=== PATIENT | female | born 1980 | race Caucasian/White ===

== ENCOUNTER 2018-12-28 07:16 | Day surgery (SDC) | payer OTHER, SELFPAY ==
--- NOTE | 2018-12-28 07:00 | W.PM.ENDDOP ---
Date of service: 12/28/18 Time of Service: 08:58 Endoscopy Report DATE OF PROCEDURE: 12/28/18 PRE-OP DIAGNOSIS: Intermittent rectal bleeding, upper abdominal pain POST-OP DIAGNOSIS: other (gastritis, reflux esophagitis, and Hiatal hernia, Grade 1 internal hemorrhoids) PROCEDURE: 1. EGD with biopsies 2. 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 Risks, benefits and complications have been reviewed. Complications include but are not limited to bleeding, pain, perforation, missed small lesion/polyp, sore throat, aspiration and adverse reaction to the medications. Questions were entertained and answered to their satisfaction and they wished to proceed. No guarantees were given or implied. PREP: Miralax/Dulcolax PROCEDURE START TIME: :58 PROCEDURE END TIME: :35 COLONOSCOPY RETRACTION TIME: 16 minutes FINDINGS: Mild to moderate gastritis, moderate esophagitis Small Hiatal hernia Grade 1 internal hemorhoids PROCEDURE DESCRIPTION: After informed consent was obtained the patient was take to the procedure room and placed in a supine position. Monitors were applied and a time out was done. The patients name, date of , procedure type, allergies to medications and metal in their body was reviewed. A bite block was placed and the patient was sedated. Once sedated and comfortable the gastroscope was advanced through the oropharynx which was grossly normal into the esophagus. The proximal and mid-esophagus were normal. In the distal esophagus there was mild to moderate inflammation noted. The scope was advanced into the stomach and through the pylorus into the 3rd portion of the duodenum. The duodenum was noted to be normal. Biopsies were done to rule out Celiac. The scope was retracted back into the stomach and biopsies were done to rule out H. pylori. There were no ulcers. The scope was retro-flexed. The cardia and fundus were noted to be normal. There was a small hiatal hernia noted. The scope was retracted back into the esophagus and biopsies were done of the GE junction to rule out Amanda's. The Z line was irregular. The GE junction was at 32 cm. While the patient was still sedated they were placed in a left decubitous position. A rectal exam was done. External exam was normal. Internal exam revealed a normal sphincter tone and no palpable masses. The scope was then introduced and retro-flexed. Grade 1 internal hemorrhoidswere noted. There were no polyps or masses identified. The scope was then advanced to the cecum without difficulty. The TI and appendiceal orifice were identified. The prep was adequate. There was bile adhered to the mucosa in the right colon. This was washed off with 1 L of sterile water. The scope was then slowly retracted over 16 minutes back into the rectum. The scope was removed and the patient was woken up and taken back to Same day surgery in stable condition. The patient tolerated the procedure well and there were no immediate complications. Follow up: 2 weeks in the office. Start Ranitidine 150 mg BID.
--- NOTE | 2018-12-28 07:03 | PDOC.DSDIS_ITS ---
Discharge Plan Disposition Patient Disposition: HOME Condition: Good Discharge Details Reason For Visit: Rectal bleeding and upper abdominal pain Attending Provider: Nohelia Jimenez Primary Care Provider: No,Local Home Meds and New Rx's Prescriptions: New ranitidine HCl 150 mg tablet 150 mg PO BID Qty: 60 RF: 0 Continued calcium carbonate [Tums] 300 mg (750 mg) Tablet,Chewable 1 - 2 PO PRN PRNRF: 0 ibuprofen 200 mg Tablet 400 mg PO PRN PRNRF: 0 Discharge Instructions Instructions: Gastritis (DC), Colonoscopy (GEN), Gastroesophageal Reflux Disease (GEN), Upper Endoscopy (DC) Additional Instructions: Findings: mild to moderate inflammation of the stomach and esophagus Grade 1 internal hemorrhoids Follow up: I will call you with bx results and see how the [facility] is working Please call if you develop: fevers >101.5 Nausea or Vomiting Abdominal pain that is not transient DAY SURGERY UNIT POST ENDOSCOPY INSTRUCTIONS 1. Because there will be medication in your system for the next 24 hours, you may feel a little sleepy. Your coordination will be affected. Therefore: a. Do not drive or operate dangerous equipment for 24 hours. b. Do not drink alcohol beverages for 24 hours (not even beer). c. Plan to go home and rest for the day. 2. Generally there are no restrictions on your activity after a day or so has gone by, but you may feel a bit fatigued for a few days. 3 After you arrive home you may have a light meal and return to a normal diet as you can tolerate it without feeling sick to your stomach. 4. After surgery, you may feel pain or discomfort. This should be only transient, but if it persists please contact your doctor. 5. If there are any questions regarding the findings of your procedure, please feel free to contact your doctor. 6. If you are unable to contact your doctor with a problem, contact the hospital at [phone]. 7. Continue all your regular medications unless directed otherwise. I understand the above instructions and have no questions. Signature of Patient or Responsible Adult Escort Date/Time Name of Responsible Adult Escort Signature of Nurse Date/Time Activity:: Activity as Tolerated Diet:: As Tolerated Discharge Orders Discharge Orders: Discharge Order (Routine); Ordered 12/28/18 Ordered By: Nohelia Jimenez DS: Diagnosis Discharge Diagnosis (1) Rectal hemorrhage: Status: Acute (2) S/P colonoscopy: Status: Acute (3) H/O esophagogastroduodenoscopy: Status: Chronic (4) Gastritis: Status: Acute (5) Esophagitis: Status: Acute (6) Internal hemorrhoids without complication: Status: Acute
[2018-12-28 07:35] VITALS: BP 114/74; PULSE 75; RESP 16; TEMP 36.1; O2SAT 99
[2018-12-28] MEDS: Lactated Ringers 1,000 ML 80 ML IV (07:57)
--- NOTE | 2018-12-28 08:36 | W.PM.HP.N ---
Date of service: 12/28/18 Time of Service: 08:36 Assessment and Plan Assessment and plan (1) Rectal hemorrhage: Status: Acute Assessment and plan: P\\ Colonoscopy under sedation Risks, benefits and complications have been reviewed. Complications include but are not limited to bleeding, pain, perforation, missed small lesion/polyp, sore throat, aspiration and adverse reaction to the medications. Questions were entertained and answered to their satisfaction and they wished to proceed. No guarantees were given or implied. (2) Upper abdominal pain: Status: Acute Assessment and plan: P\\ EGD Risks, benefits and complications have been reviewed. Complications include but are not limited to bleeding, pain, perforation, sore throat, aspiration, and adverse reaction to the medications. Questions were entertained and answered to their satisfaction and they wished to proceed. No guarantees were given or implied. History of Present Illness Narrative: 38 y/o female presents with complaints of rectal bleeding, she had noted blood on the toilet paper with wiping after bowel movements which was mild and then became a moderate. This has not occurred over the past month. She reports her BMs fluctuate between constipation and loose. She describes intermittent, upper abdominal pain, bloating and heart burn. She avoids serveral types of foods for she feels that they contribute to her symptoms to include Dairy and Meat (related to constipation) and coffee and soda (heart burn/upper abdominal pain). Of note she reports since having children, she has rectal prolapse. She denies a family history of colon cancer. However, she believes her mother has a history of worrisome polyps and it was recommended that her children have their first Colonoscopy at the age of 40. She denies constitutional symptoms. Denies use of marijuana or any other recreational or illegal drugs. She denies chest pain, dyspnea or dyspnea with exertion. She denies prior history or family history of adverse reactions or complications with anesthesia. Review of Systems Cardiovascular Cardiovascular: Denies chest pain, Denies chest pain at rest, Denies dyspnea and Denies dyspnea on exertion Respiratory Respiratory: Denies dyspnea and Denies dyspnea on exertion [facility] Social History (Updated 11/27/18 @ 18:32 by SILVA Mayer) Smoking/Tobacco Use Status: Never Alcohol Intake: current Alcohol Intake frequency: a few times a month Substance use type: does not use Details: alcohol 3 weeks ago Current gender identity: female Do you feel safe at home: Yes Do you feel safe in your relationship?: Yes Meds Home Medications and Allergies Home Medications Medication Instructions Recorded Confirmed Type calcium carbonate [Tums] 1 - 2 PO PRN PRN 12/28/18 History ibuprofen 400 mg PO PRN PRN 12/28/18 12/28/18 History Allergies Allergy/AdvReac Type Severity Reaction Status Date / Time telithromycin Allergy Hives Verified 12/28/18 07:34 Exam HENMT Head: normocephalic and atraumatic Resp Effort & Inspection: normal respiratory effort Auscultation: clear to auscultation bilaterally Cardio Rate: regular rate Rhythm: regular rhythm Results Last Vital Signs Temp 97.0 F L 12/28/18 07:35 Pulse 75 12/28/18 07:35 Resp 16 12/28/18 07:35 BP 114/74 12/28/18 07:35 Pulse Ox 99 12/28/18 07:35
--- NOTE | 2018-12-28 09:00 | STOM_PTH ---
PATIENT: Marnie Beth LOC: [facility] U#:[id number] AGE/SX: 38/F ROOM: RE12/28/[address]: Nohelia Jimenez MD : 1980 BED: DIS: 12/28/2018 SPEC #: [id number] RECD: 12/28/18 12:44 STATUS: SANIA RE #: [id number] ERICK: 12/28/18 09:[address]: Nohelia Jimenez DEPT: Surgical Specimen RECD BY: Nivia Atkins Tissues: 1 - BIOPSY BOWEL 2 - STOMACH BIOPSY 3 - ESOPHAGUS BIOPSY Procedures: GROSS AND MICRO LEVEL 4 Comments: [id number]
[2018-12-28 10:29] VITALS: BP 93/61; PULSE 60; RESP 16; TEMP 36; O2SAT 100
[2018-12-28 11:00] VITALS: BP 98/64; PULSE 64; RESP 16; TEMP 36; O2SAT 100
== END 2018-12-28 11:40 | disposition home or self-care (01) ==
LOC: SUR 07:18
PROVIDERS: Visit Provider Surgery
PROC: (CPT 43239; principal; 2018-12-28 08:45)
DX: K62.5 Hemorrhage of anus and rectum (principal); K64.0 First degree hemorrhoids; R10.10 Upper abdominal pain, unspecified; K29.80 Duodenitis without bleeding; K29.60 Other gastritis without bleeding; K21.0 Gastro-esophageal reflux disease with esophagitis; K44.9 Diaphragmatic hernia without obstruction or gangrene
CPT/HCPCS: 43239; 45378; 81025; 88305; NC

== ENCOUNTER 2019-02-02 16:23 | Outpatient (CLI) | payer OTHER, SELFPAY ==
[2019-02-04 13:25] LABS: IgA 118 mg/dL (85-499); Interpretation SEE COMMENTS; Tissue Transglutaminase IgA 4.1 U/mL (<4.0)
== END 2019-02-02 16:43 ==
PROVIDERS: Visit Provider Surgery
DX: R10.10 Upper abdominal pain, unspecified (principal); R19.7 Diarrhea, unspecified
CPT/HCPCS: 36415; 82784; 83516

== ENCOUNTER 2023-01-04 10:52 | Emergency (ER) | payer OTHER, SELFPAY ==
[2023-01-04 10:55] VITALS: BP 108/72; PULSE 110; RESP 18; TEMP 36.7; O2SAT 100
--- NOTE | 2023-01-04 11:08 | W.ED.GENAD ---
Discharge Plan Disposition Patient Disposition: Home Discharge Details Clinical Impression: Blanching rash, Generalized headache Primary Care Provider: Jes,Local ED Provider: Caleb Ley Home Meds and New Rx's Prescriptions: New doxycycline hyclate 100 mg capsule 100 mg PO BID 14 Days Qty: 28 0RF Continued calcium carbonate [Tums] 300 mg (750 mg) Tablet,Chewable 1 - 2 PO PRN PRN Patient Comments: not taking ibuprofen 200 mg Tablet 400 mg PO PRN PRN ranitidine HCl 150 mg tablet 150 mg PO BID Qty: 60 0RF Patient Comments: not taking Discharge Instructions Additional Instructions: You were seen in the emergency department for your headache and a rash. Your blood work showed no anemia or thrombocytopenia nor leukocytosis. Your respiratory viral swab was negative for influenza A, influenza B, and RSV. You did not have COVID. While you are pending your Lyme and tickborne studies you are receiving 2 weeks of doxycycline which you should take as directed. Please ensure that you stay covered up while out in the sun as this will make you more sensitive to the sun. If you feel worse cannot eat or drink or have any other concerns please return to the emergency department. Otherwise please follow-up with your primary care provider as needed next week. Discharge Data Discharge Date/Time-TO BE ENTERED AT DEPARTURE: 01/04/23 12:59 HPI General Date/Time Provider Initiated Documentation: 01/04/23 11:08. HPI Narrative: HPI This is a previously healthy 42-year-old female arriving via private vehicle in the setting of joint aches chills and rash which began 10 days ago. Patient initially had a sore throat. At the time her spouse tested positive for COVID. Subsequently she developed a persistent generalized headache sometimes worse when she stood up and neck stiffness. She reports that her headache is occasionally in different parts of her head. She has been taking 800 to 1200 mg of ibuprofen daily. 5 days ago she developed a rash on her arms legs trunk and back. She has had various joints aching. She is not on any outpatient medications. She does report that she walks extensively in the [place] with her dog but does not recall any recent tick bites. She has occasionally been nauseous. She has occasional and some palpitations. She has never had a PE nor DVT. She is not on any outpatient oral contraceptive pills. She denies dysuria and frequency. She has had subjective chills and fevers. She has not taken a home COVID test. She has not been vomiting. Her children are not sick with similar symptoms. Exam General: Well-appearing in no acute distress speaking in complete sentences. Head: Normocephalic, atraumatic. Eye: Extraocular eye movements intact. No conjunctival injection. No scleral icterus. Ear, nose, mouth, throat: Grossly normal inspection. Normal voice, handling secretions normally. No significant posterior oropharynx erythema. Uvula midline. No signs of mucositis. Neck: Trachea midline. Cardiovascular: Well-perfused distal extremities. Regular rate and rhythm. Respiratory: Nonlabored respiration. Clear lungs bilaterally. Gastrointestinal: Nondistended abdomen. Musculoskeletal: No edema. Moving all 4 extremities spontaneously. Skin: Scattered blanching erythematous plaques to the patient's right leg trunk back and bilateral arms. No petechiae. No bullae. Neurologic: Alert and appropriate, no apparent acute deficits. Psychiatric: Mood and manner are appropriate. Grooming and personal hygiene are appropriate. MDM This is an overall very well-appearing mildly tachycardic but normothermic and not hypotensive 42-year-old female with generalized malaise and rash with recent COVID exposure concerning for the possibility of COVID. Given patient walks in the [place] it certainly may be possible that she could have a tickborne illness so we will obtain tickborne studies and order CBC to assess for any thrombocytopenia or leukopenia. Given concern for possibility of Lyme we will also assess intervals on ECG to ensure patient does not have a Lyme carditis. We will also check comprehensive metabolic panel to assess for any LFT abnormalities given concern for possible tickborne disease. We will treat with acetaminophen. Patient does have headache neck stiffness which raises the possibility of meningitis. She is not altered to suggest encephalitis. Given the duration of the patient's symptoms and her overall nontoxic appearance my suspicion for bacterial meningitis is exceedingly low so I do not feel the patient patient requires an LP. Patient is trained as an emergency physician and she agrees that she does not feel that she requires a lumbar puncture. Given her joint aches and rash is certainly also possible that she could have a rheumatological condition which would require further evaluation as an outpatient. Patient has never had a PE nor DVT and she is not hypoxic so my suspicion for PE is low. She fails the PERC rule secondary to her tachycardia but will defer a D-dimer given no shortness of breath. No significant posterior oropharynx erythema to suggest strep pharyngitis and based on patient's age and low Centor score I did not swab for strep. Good range of motion in neck so I am not suspicious for retropharyngeal abscess. Uvula midline so doubt peritonsillar abscess. No pain out of proportion to suggest necrotizing soft tissue infection. No new medications to suggest dress syndrome. Rash may represent a viral exanthem. Rash does not appear consistent with cellulitis. No fluctuance to abscess. Rash may also being consistent with erythema multiform a which certainly could be consistent with a Lyme disease, collagen vascular disorders, or viral infections. Concerning her headache my suspicion was exceedingly low for carotid arterial dissection given no chiropractic manipulation. Doubt carbon monoxide poisoning based on season. Headache was not sudden onset so doubt subarachnoid hemorrhage. 12:28 PM Patient's ECG did show low voltage for which I completed a limited bedside ultrasoun which was reassuring against significant pericardial effusion. Her CBC lacked anemia thrombocytopenia and leukocytosis. She did have mild lymphopenia. Her comprehensive metabolic panel showed mild hypoalbuminemia. Mildly elevated alkaline phosphatase.. Given abdominal pain my suspicion is low for acute cholecystitis otherwise no LFT abnormalities. Normal renal function. No anion gap. Normal bicarbonate. No prior labs for comparison. COVID influenza and RSV negative. Patient and I discussed treating prophylactically for Lyme with doxycycline. We discussed sun exposure precautions on doxycycline. I provided her with a 2-week course of doxycycline. We discussed return indications: Inability tolerate p.o. worsening headache or fevers. We will proceed with empiric trial of expectant outpatient management. Patient's tachycardia resolved in the ED. Chronic conditions affecting the care of the patient: N/A History obtained from an outside historian: N/A External record review: [facility] [place] [Diagnostic interpretations performed by me:] [Per my independent interpretation EKG shows:] Narrow complex normal sinus rhythm at a rate of 92. Normal axis. Intervals within normal limits. Low voltage in limb leads and precordial leads. Poor R wave progression based on R wave less than 3 mm in V3. No prior for comparison. No acute injury pattern. Medications: Doxycycline Social determinants of health affecting disposition: N/A Management discussed with: N/A Treatment/interventions considered: N/A Response to therapies provided: N/A Related Data Home Medications Medication Instructions Recorded Confirmed calcium carbonate 300 mg (750 mg) 1 - 2 PO PRN PRN 12/28/18 chewable tablet (Tums) ibuprofen 200 mg tablet 400 mg PO PRN PRN 12/28/18 01/04/23 ranitidine HCl 150 mg tablet 150 mg PO BID #60 tabs 12/28/18 doxycycline hyclate 100 mg capsule 100 mg PO BID 14 days #28 caps 01/04/23 Previous Rx's Medication Instructions Recorded ranitidine HCl 150 mg tablet 150 mg PO BID #60 tabs 12/28/18 doxycycline hyclate 100 mg capsule 100 mg PO BID 14 days #28 caps 01/04/23 Allergies Allergy/AdvReac Type Severity Reaction Status Date / Time telithromycin Allergy Hives Verified 01/04/23 11:12 General Stated Complaint: [employer] TANIA: 3 PFSH All Active Problems (Updated 01/04/23 @ 12:16 by Caleb Ley MD) Blanching rash (Acute) Generalized headache (Acute) Internal hemorrhoids without complication (Acute) Esophagitis (Acute) Gastritis (Acute) Upper abdominal pain (Acute) S/P colonoscopy (Acute ~12/28/18) H/O esophagogastroduodenoscopy (Chronic ~12/28/18) Rectal hemorrhage (Acute) Medical History (Updated 01/04/23 @ 12:16 by Caleb Ley MD) Encounter for insertion of mirena IUD Surgical History History of ear surgery R tympanoplasty, bilateral canalplasty Hx of sinus surgery Social History (Updated 11/27/18 @ 18:32 by SILVA Mayer) Smoking/Tobacco Use Status: Never Smoking risk assessment performed?: Yes Alcohol Intake: current Alcohol Intake frequency: a few times a month Substance use type: does not use Details: alcohol 3 weeks ago Housing: house Current gender identity: female Do you feel safe at home: Yes Do you feel safe in your relationship?: Yes Course Vital Signs Vital signs: Vital Signs Temperature 36.7 C 01/04/23 10:55 Pulse 110 H 01/04/23 10:55 Respiratory Rate 18 01/04/23 10:55 Blood Pressure 108/72 01/04/23 10:55 Pulse Oximetry 100 01/04/23 10:55 Temperature 36.7 C 01/04/23 10:55 Pulse 110 H 01/04/23 10:55 Respiratory Rate 18 01/04/23 10:55 Blood Pressure 108/72 01/04/23 10:55 Blood Pressure Position Sitting 01/04/23 10:55 Pulse Oximetry 100 01/04/23 10:55 Oxygen Delivery Method Room Air 01/04/23 10:55 Oxygen Flow Rate 0 01/04/23 10:55 Pain Level 4 01/04/23 10:55 POCUS Exam (ED) Limited Cardiac Exam DATE OF EXAM: 01/04/23 TIME OF EXAM: 13:17 PROVIDER THAT PERFORMED THE STUDY: Caleb Ley IS THIS A REPEAT EXAM DURING THIS ENCOUNTER: no REASON FOR EXAM: Other indication: Low voltage VISUALIZED STRUCTURES: Four Chambers, Left ventricle and LVOT VIEW OBTAINED: Apical 4-Chamber, Parasternal long-axis and Subxiphoid PERTINENT FINDINGS/IMPRESSION: No apparent abnormalities and Other (Good squeeze, RV less than LV, no significant pericardial effusion aortic outflow track less than 4 cm) DIFFERENTIAL DIAGNOSES: Good squeeze, RV less than LV, no significant pericardial effusion aortic outflow track less than 4 cm Exam complete
[2023-01-04 11:11] VITALS: RESP 18
--- NOTE | 2023-01-04 11:30 | RT.EKG_ITS ---
APPROVED REPORT Exam: Resting ECG Reason for Exam: ? Lyme carditis Patient Location: E HR:92 bpm ECG Measurements Heart Rate 92 AXIS WI 148 P 37 QRSd 81 QRS 28 QT 339 T 55 QTc 417 Conclusion Sinus rhythm...normal P axis, V-rate 60- 99 Multiple ventricular premature complexes...V complexes w/ short R-R intervls Low voltage, precordial leads...precordial leads <1.0mV Narrow complex normal sinus rhythm at a rate of 92. Normal axis. Intervals within normal limits. L ow voltage in limb leads and precordial leads. Poor R wave progression based on R wave less than 3 m m in V3. No prior for comparison. No acute injury pattern.
[2023-01-04] MEDS: Acetaminophen 500 MG TAB 1000 MG PO (11:51)
[2023-01-04 12:02] LABS: Abs Immature Grans 0.01 10^3/uL (0.0-0.06); Absolute Basophil Count 0.03 10^3/uL (0.0-0.2); Absolute Eosinophil Count 0.16 10^3/uL (0.0-0.7); Absolute Lymphocyte Count 0.76 10^3/uL (1.2-3.4); Absolute Monocyte Count 0.36 10^3/uL (0.1-0.8); Absolute Neutrophil Count 4.81 10^3/uL (1.2-6.7); Basophils % 0.5; Eosinophils % 2.6; HCT 33.6 % (36.0-46.0); HGB 11.6 g/dL (11.2-15.7); Immature Grans % 0.2; Lymphocytes % 12.4; MCH 30.1 pg (27.0-33.0); MCHC 34.5 % (32.0-36.0); MCV 87 fL (80-95); MPV 10.3 fL (8.0-11.0); Monocytes % 5.9; Neutrophils % 78.4; Platelet Count 222 10^3/uL (130-400); RBC 3.86 10^6/uL (3.93-5.22); RDW 12.1 % (11.7-14.6); RDW-SD 39.2 fL; WBC 6.13 10^3/uL (4.4-10.8)
[2023-01-04 12:17] LABS: ALT 51 U/L (14-59); AST 31 U/L (15-37); Albumin 2.9 g/dL (3.4-5.0); Alkaline Phosphatase 120 U/L (46-116); Anion Gap 8.7 mmol/L (3-11); BUN 11 mg/dL (7-18); Bilirubin, Total 0.6 mg/dL (0.2-1.0); CO2 25.3 mmol/L (21.0-32.0); CREATININE 0.8 mg/dL (0.55-1.02); Calcium 9.1 mg/dL (8.5-10.1); Chloride 103 mmol/L (98-107); Estimated GFR 94.28 (mL/min/1.73m2); Glucose 114 mg/dL (74-106); Potassium 3.9 mmol/L (3.5-5.1); Sodium 137 mmol/L (136-145); Total Protein 6.7 g/dL (6.4-8.2)
[2023-01-04 12:34] LABS: COVID-19 PCR Negative (Negative); Influenza A PCR Negative (Negative); Influenza B PCR Negative (Negative); RSV PCR Negative (Negative)
[2023-01-04 12:36] LABS: Source Nasopharynx
[2023-01-04 12:51] VITALS: BP 98/72; PULSE 73; RESP 18; TEMP 37.2; O2SAT 98
[2023-01-04] MEDS: Doxycycline Hyclate 100 MG CAP PO (12:54)
[2023-01-06 10:43] LABS: Lyme Ab w Rflx to Lyme Confirm Positive (Negative)
[2023-01-06 11:23] LABS: Lyme IgG Ab Positive (Negative); Lyme IgM Ab Positive (Negative)
[2023-01-07 23:17] LABS: Anaplasma phagocytophilum Negative (Negative); B. miyamotoi PCR Negative (Negative); Babesia divergens/MO-1 Negative (Negative); Babesia duncani Negative (Negative); Babesia microti Negative (Negative); Ehrlichia chaffeensis Negative (Negative); Ehrlichia ewingii/canis Negative (Negative); Ehrlichia muris eauclairensis Negative (Negative)
== END 2023-01-04 12:59 | disposition home or self-care (01) ==
PROVIDERS: Emergency Provider Emergency Medicine
DX: I49.3 Ventricular premature depolarization; R23.8 Other skin changes; R51.9 Headache, unspecified; Z20.822 Contact with and (suspected) exposure to COVID-19; Z88.1 Allergy status to other antibiotic agents
CPT/HCPCS: 36415; 80053; 86617; 87637; 87798; 93005; 99285; 85025; 86618; 93010; 99284